=== PATIENT | female | born 1950 | race Caucasian/White ===

== ENCOUNTER → 2016-11-03 | Outpatient (CLI) | payer MEDICARE, OTHER ==
[~2016-11-03] MED LIST: KEFLEX500 M1 PO; ZOFRAN ODT4 MG PO
--- NOTE | ~2016-11-03 | CT138 ---
[facility] A Service of [facility] RADIOLOGY TEXT RESULTS PATIENT: BOB HULL LOCATION: [facility] : 48 UNIT #: [id number] AGE: [address]: JERMAINE FLEMING MD SEX: F ORDER DR: [id number] [place], [place] [address] [id number] O MR#: [id number] Acc #: [id number] NAME: BOB HULL : 1950 SEX: F STUDY DATE/TIME: 11/03/2016 13:41 UNIT: CCA ROOM: STUDY DESCRIPTION: CT Lung screening initial Attending Physician: Jermaine Fleming M.D. Referring Physician: Jermaine Fleming M.D. Ordering Physician: Jermaine Fleming M.D. Primary Care Physician: Jermaine Fleming M.D. MEDICAL IMAGING REPORT This report is preliminary unless electronic signature is present EXAM Lung cancer screening study initial 11/03/2016 HISTORY 52.5 year smoking history, 1 pack per day. COMPARISON STUDIES None TECHNIQUE Low dose screening was performed with 2 mm images generated through the chest. The CTDI volume mGy is 3.0. The DLP in mGy/cm is 128. This CT exam was performed with one or more of the following radiation dose reduction techniques: automatic exposure control, adjustment of mA and/or kV according to patient size, and iterative reconstruction. FINDINGS The thyroid gland is small. The aorta is normal in size. There is no mediastinal or hilar adenopathy. The visualized portions of the upper abdomen are normal. There are coronary artery calcifications present and they are extensive. The lungs are clear. IMPRESSION 1. No pulmonary nodules are identified. 2. Extensive coronary artery calcifications. Lung RADS category 1S. Dictated by... Danilo Palafox M.D. [facility] A Service of [facility] RADIOLOGY TEXT RESULTS PATIENT: BOB HULL LOCATION: [facility] : 48 UNIT #: [id number] AGE: [address]: JERMAINE FLEMING MD SEX: F ORDER DR: THIS IS AN ELECTRONICALLY VERIFIED REPORT Danilo Palafox M.D. at 12/02/2016 1:13 PM Concepcion TD: 11/03/2016 16:57 JOB #: [id number] MEDICAL IMAGING REPORT COPY
== END | disposition home or self-care (01) ==
LOC: CCAT 13:24
DX: F17.210 Nicotine dependence, cigarettes, uncomplicated (principal)
CPT/HCPCS: G0297

== ENCOUNTER → 2016-12-14 | Outpatient (CLI) | payer MEDICARE, OTHER ==
--- NOTE | ~2016-12-14 | TH ---
Unit #: [id number] #: [id number] Patient: BOB HULL [id number] [address] [address] [id number] O MR#: [id number] NAME: BOB HULL : 1950 SEX: F STUDY DATE/TIME: 12/14/2016 UNIT: CN ROOM: STUDY DESCRIPTION: Stress nuclear Attending Physician: Karan Joseph M.D. Referring Physician: Karan Joseph M.D. Primary Care Physician: Jermaine Presley M.D. CARDIOLOGY REPORT EXAM Stress nuclear. FINDINGS Result text under stress test. Please see this report for result text. Dictated by... Danilo Stewart/shabana TD: 12/15/2016 12:18 JOB #: [id number] CARDIOLOGY REPORT Page 1 of 1 X Ted Olsen MD CARDIOLOGY REPORT
--- NOTE | ~2016-12-14 | ST ---
Unit #: [id number] #: [id number] Patient: BOB HULL [id number] [address] [address] [id number] O MR#: [id number] NAME: BOB HULL. : 1950 SEX: F STUDY DATE/TIME: 12/14/2016 UNIT: [facility] ROOM: STUDY DESCRIPTION: Stress nuclear/ECG combined Attending Physician: Karan Joseph M.D. Referring Physician: Karan Joseph M.D. Primary Care Physician: Jermaine Presley M.D. CARDIOLOGY REPORT EXAM Stress nuclear and ECG combined. INDICATIONS Chest pain. SUMMARY Patient exercised on a Terrell protocol to maximal effort. Patient completed 6 minutes and 29 seconds of exercise. Heart rate increased from 49 to 151 (98%) and blood pressure increased from 160/84 to 180/80. The rest ECG was abnormal with T wave inversion in leads II, aVL, and V4-V6. With stress there was pseudonormalization of these T waves, which returned back to the resting state at 4 minutes, 50 seconds post exercise. Technetium 99 Cardiolite, 9.92 and 34.4 mCi, was injected at rest and stress, respectively. Appropriate views were obtained. FINDINGS Study shows no significant patient motion either at rest or stress. There is no significant lung uptake, LV or RV enlargement. Summed stress score is a 0. Summed difference score is a 0. Gated perfusion wall motion analysis demonstrates normal wall motion throughout the myocardium with end diastolic volume of 81 mL and ejection fraction greater than 65%. Perfusion images demonstrate significant intestinal artifact at rest and less with stress. Otherwise, normal perfusion throughout the myocardium both at rest and stress. IMPRESSION 1. Myocardial perfusion scan shows no ischemia or infarction. 2. Normal wall motion with excellent ejection fraction. 3. Mild deconditioning based on the patient's age. 4. Normal heart rate response. 5. Hypertension at rest with normal blood pressure response. Dictated by... Ted Olsen M.D. GARTH/shabana TD: 12/15/2016 12:10 JOB #: [id number] Unit #: [id number] #: [id number] Patient: BOB HULL CARDIOLOGY REPORT Page 1 of 1 X Ted Olsen MD CARDIOLOGY REPORT
== END | disposition home or self-care (01) ==
LOC: CNUC 08:45
DX: I25.10 Atherosclerotic heart disease of native coronary artery without angina pectoris (principal); R07.9 Chest pain, unspecified; I08.1 Rheumatic disorders of both mitral and tricuspid valves
CPT/HCPCS: 78452; 93017; 93306; A9500